=== PATIENT | female | born 1990 | race Caucasian/White ===

== ENCOUNTER 2021-07-17 13:14 | Emergency (ER) | payer SELFPAY ==
--- NOTE | ~2021-07-17 | XR_ITS ---
EXAMINATION: XR CHEST CLINICAL INFORMATION: Chest pain COMPARISON: Previous chest x-ray February 2017 TECHNIQUE: 2 views of the chest were obtained. FINDINGS: No significant abnormality is noted involving the heart, lungs, mediastinum, bony thorax or soft tissues. XR/XR chest 2V IMPRESSION: Unremarkable examination.
[2021-07-17 14:27] VITALS: BP 136/90; PULSE 97; RESP 18; TEMP 36.7; O2SAT 99; BMI 26.6
--- NOTE | 2021-07-17 15:12 | ED.GENADULT ---
HPI - General Adult General Chief complaint: General Medical Stated complaint: sob sore throat Time Seen by Provider: 07/17/21 14:53 Source: patient Mode of arrival: ambulatory Limitations: no limitations History of Present Illness HPI narrative: 31 y/o otherwise healthy female presents to the ER with c/o sore throat that started yesterday morning along with diarrhea and chest tightness that started today. She has had decreased appetite as well without nausea, vomiting or abdominal pain. She denies fever or chills. Her roommates children are sick with diarrhea and one has pneumonia. She denies coughing but states the chest tightness is across the entire top of her chest, worse with deep breaths and movement. She is vaccinated for COVID but not Flu. MD complaint: sore throat, diarrhea, chest tightness Onset (ago): day(s) (1) Location: mouth and chest Radiation: non-radiation Severity: moderate Severity scale (1-10): 5 Quality: aching Pain Consistency: intermittent Relieving factors: none Exacerbating factors: eating and movement Associated symptoms: loss of appetite and malaise Treatments prior to arrival: none Related Data Allergies Allergy/AdvReac Type Severity Reaction Status Date / Time No Known Allergies Allergy Unverified 01/07/20 17:20 [No Known Allergies*] Review of Systems Review of Systems: Constitutional: No Fever, No Chills ENT/Mouth: + sore throat, No Rhinorrhea, +Nasal congestion, No Swallowing Difficulty Eyes: No Eye Pain, No Swelling, No Redness Cardiovascular: +Chest Pain, No SOB, No Orthopnea, No Edema Respiratory: No Cough, No Sputum, No Wheezing, No dyspnea Gastrointestinal: No Nausea, No Vomiting, + Diarrhea, No abdominal Pain, No Hematochezia, No Melena Genitourinary: No Dysuria, No Urinary Frequency, No Hematuria Musculoskeletal: No joint pain, + Myalgias Skin: No Skin Lesions, No rash Neuro: No Weakness, No Dizziness, No Headache Psych: No Anxiety/Panic, No Depression Heme/Lymph: No Bruising, No Lymphadenopathy PMFSH Social History Social History Advance Directives: No Advance Directives Information Provided: No Physical Exam ED Vital Signs: Vital Signs - 24 hr 07/17/21 14:27 Temperature 98.1 F Pulse Rate 97 Respiratory Rate 18 Blood Pressure 136/90 H Pulse Oximetry 99 BMI result Body Mass Index 26.6 Appearance: Alert. Oriented X3. No acute distress. Eyes: Pupils equal, round and reactive to light. ENT: Pharynx normal. No tonsillar swelling or erythema, uvula midline. Normal voice. Normal TM's bilaterally. Neck: Normal inspection. Neck supple. CVS: Normal heart rate and rhythm. Pulses normal. Respiratory: No respiratory distress. Breath sounds normal. No chest wall tenderness. Abdomen: Soft and nontender. +BS x4 Skin: Skin warm and dry. Normal skin color. Normal skin turgor. No rashes. Extremities: No lower extremity edema. No calf tenderness. Neuro: Oriented X 3. Grossly normal, nonfocal. Course Course Course Narrative: 31 y/o female presenting with sore throat, diarrhea x1, malaise and decreased appetite in the setting of exposure to ill children of her roommate. On arrival to the ER her VS are normal and her physical exam is unremarkable. Suspect viral illness. Will check COVID, Flu, Strep swabs as well as CXR. Reevaluation(s) Reevaluation #1: CXR clear. Strep, Flu, COVID negative. Tolerating PO. Most likely viral syndrome. Stable for d/c home with supportive care and outpatient follow up PRN. Medical Decision Making Lab Data Labs: Lab Results 07/17/21 07/17/21 07/17/21 Range/Units 14:59 14:59 15:00 COVID-19 ([facility]EVE) Negative (Negative) COVID-19 Clin Com See Note Influenza Type A ([facility]) Negative (Negative) Influenza Type B ([facility]) Negative (Negative) Influenza A & B Note See Note S. pyogenes GrpA [facility] Negative (Negative) Discharge Plan Discharge Clinical Impression: Acute viral syndrome Patient Disposition: Home, Self-Care Instructions: Viral Syndrome (ED) Additional Instructions: Your chest x-ray today was normal. You were negative for Flu, COVID, and Strep throat. Your symptoms are due to a viral illness. Treatment is supportive care - rest, drink plenty of fluids, take Motrin and/or Tylenol as needed for pain. Use warm salt water gargles for your sore throat. Follow up with your doctor as needed. If you develop new or worsening symptoms call 911 or come back to the ER for further evaluation. Stand Alone Forms: Work/School Release
[2021-07-17 15:19] LABS: Strep A Nucleic Acid Negative (Negative)
[2021-07-17 15:24] LABS: Influenza A Negative (Negative); Influenza B2 Negative (Negative)
[2021-07-17 15:30] LABS: COVID-19 Test Negative (Negative); IDNOW Serial# 55D5AD1C
== END 2021-07-17 16:17 | disposition home or self-care (01) ==
PROVIDERS: Physician Assistant Medical; Emergency Provider Emergency Medicine
DX: B34.9 Viral infection, unspecified (principal); Z20.822 Contact with and (suspected) exposure to COVID-19; J02.9 Acute pharyngitis, unspecified
CPT/HCPCS: 71046; 87502; 87635; 87651; 99283